=== PATIENT | female | born 1965 ===

== ENCOUNTER → 2021-03-20 | Outpatient (REF) ==
--- NOTE | 2021-03-20 11:09 | REP ---
INDICATION: ARTHRITIS COMPARISON: None. TECHNIQUE: AP, lateral, coned-down views of the lumbar spine. FINDINGS: Lateral views demonstrate chronic grade 1 anterolisthesis at the L4-5 level of approximately 6 mm with associated facet hypertrophy as well as endplate sclerosis and disc space narrowing at L4-5. Facet hypertrophy, endplate sclerosis and disc space narrowing also identified at L5-S1 without obvious spondylolysis or spondylolisthesis. Remainder of the visualized lower thoracic and lumbar spine appears age-appropriate. IMPRESSION: 1. Chronic changes at L4-5 and L5-S1 as described above. <Electronically signed by Hussein Rodríguez > 03/20/21 3518
== END ==
LOC: M PLAIMG 10:53
PROVIDERS: ATTEND Internal Medicine
DX: M46.96 Unspecified inflammatory spondylopathy, lumbar region (principal)